=== PATIENT | male | born 1950 | race Caucasian/White ===

== ENCOUNTER → 2016-12-03 | Outpatient (CLI) | payer OTHER ==
[~2016-12-03] MED LIST: ASPIRIN325 PO; CENTRUM SILVER1 EAC2 PO; ENOXAPARIN100 MG/1 M SQ; FISH OIL 1,001000 M2 PO; FLECAINIDE ACET50 M1 PO; NORCO 5-325 TA1 EACH PO; OMEPRAZOLE40 MG PO; SAVAYSA60 MG PO; TENORMIN50 MG PO; TOPROL XL25 MG PO
--- NOTE | ~2016-12-03 | 2DMMODE ---
[facility] [place] [address] 2 D/M-MODE ECHOCARDIOGRAM Name: NIMESH TORRES Room #: REG [facility]#: [id number] Admission: 12/03/16 Attend Phys: Akhil Najera Discharge: Date of : 54 Date of Service: 12/03/16 1100 Report #: [id number] THIS REPORT FOR: //name// Transthoracic Echocardiography Ordering physician: Akhil Najera Referring physician: Sergio Rosario Luis F. Care Team Coordinator Scheduler: Mary Brown Indications/History: Afib BP: 119 / HR: 100bpm Height: 71in Weight: 199.6lb 87 Study data: M-mode, complete 2D, complete spectral Doppler, and color Doppler. Location: Echo laboratory. Routine. Image quality was adequate. 2D measurements Normal Normal LVID ED 44.6mm 36-57 IVS ED 13.5mm 6-11 LVID ES 33.5mm 23-40 LVPW ED 13.2mm 6-11 LA volume 48ml/m2 16-28 AoRoot diam 35.9mm 21-37 index ED LVOT diameter 23mm 18-23 Findings: Left ventricle: The cavity size was normal. Wall thickness was normal. Systolic function was normal. The estimated ejection fraction was in the range of 50% to 55%. Right ventricle: The cavity size was dilated. Systolic function was normal. Right atrium: The atrium was mildly to moderately dilated. Left atrium: The atrium was moderately dilated. Volume index: 48ml/m2 (S). Aortic valve: Mildly calcified leaflets. Doppler: There was no stenosis. Mild regurgitation. Peak velocity: 103cm/s (S). [address] [address] 2 D/M-MODE ECHOCARDIOGRAM Name: NIMESH TORRES Room #: REG [facility]#: [id number] Admission: 12/03/16 Attend Phys: Akhil Najera Discharge: Date of : 54 Date of Service: 12/03/16 1100 Report #: [id number] Mitral valve: Structurally normal valve. Doppler: There was no evidence for stenosis. Mild regurgitation. Peak E-wave velocity: 67.7cm/s. Tricuspid valve: Structurally normal valve. Doppler: There was no evidence for stenosis. Mild regurgitation. Regurgitant peak velocity: 219.3cm/s. Peak RV-RA gradient: 19mm Hg (S). Pulmonic valve: Structurally normal valve. Doppler: There was no evidence for stenosis. Mild regurgitation. Pericardium: There was no pericardial effusion. Aorta: Aortic root: The aortic root was normal in size. Pulmonary artery: Systolic pressure was estimated to be 24mm Hg. Diastolic function: The study was not technically sufficient to allow evaluation of LV diastolic dysfunction due to atrial fibrillation. Systemic veins: Inferior vena cava: The vessel was normal in size; the respirophasic diameter changes were in the normal range (= 50%). Conclusions 1. Left ventricle: The cavity size was normal. Wall thickness was normal. Systolic function was normal. The estimated ejection fraction was in the range of 50% to 55%. 2. Right ventricle: The cavity size was dilated. 3. Right atrium: The atrium was mildly to moderately dilated. 4. Left atrium: The atrium was moderately dilated. 5. Aortic valve: Mildly calcified leaflets. Mild regurgitation. 6. Mitral valve: Mild regurgitation. 7. Tricuspid valve: Structurally normal valve. Mild regurgitation. 8. Pulmonary arteries: Systolic pressure was estimated to be 24mm Hg. <ELECTRONICALLY SIGNED> By: Guzman Kenney MD 12/03/16 1148 1100 1148 Guzman Kenney MD /francisco javier
== END ==
LOC: CV 10:27
DX: I48.91 Unspecified atrial fibrillation (principal)

== ENCOUNTER → 2016-12-06 | Outpatient (CLI) | payer OTHER ==
[~2016-12-06] VITALS: Ht 180.3 cm; Wt 90.7 kg
--- NOTE | ~2016-12-06 | P ---
[facility] [place] [address] PROCEDURE REPORT Name: NIMESH TORRES Room #: REG [facility]#: [id number] Admission: 12/06/16 Attend Phys: Akhil Najera MD Discharge: Date of : 54 Report #: [id number] THIS REPORT FOR: //name// CC: Akhil Rosario DATE OF SERVICE: 12/06/2016 CARDIOVERSION REPORT PREOPERATIVE DIAGNOSIS: Atrial fibrillation. POSTOPERATIVE DIAGNOSIS: Atrial fibrillation. HISTORY: The patient is a 66-year-old with history of atrial fibrillation who has had recurrence and is here for cardioversion. The patient underwent informed consent. We discussed the risks, benefits of the procedure. He was prepped and draped in a sterile fashion. Patches were placed in AP position, the patient was then sedated by the anesthesiology service. His initial cardioversion restored sinus rhythm for a few seconds and then he went back into AFib. A second 200 joule shock was performed with lutheran of sinus rhythm. CONCLUSIONS: 1. Successful DC cardioversion with lutheran of sinus rhythm. <ELECTRONICALLY SIGNED> By: Akhil Najera MD 12/15/16 1045 1202 1748 Akhil Najera MD /nt
[2016-12-06 10:20] VITALS: BP 131/86
[2016-12-06 10:35] LABS: HEMATOCRIT 42.3 % (42.0-52.0); HEMOGLOBIN 14.3 gm/dL (14.0-18.0); MCH 28.9 pg (26.0-34.0); MCHC 33.9 % (28.0-37.0); MCV 85.4 fL (80.0-100.0); RBC 4.95 mil/uL (4.50-6.00); RDW 13.6 % (10.5-14.5); WBC 7.4 thou/uL (4.0-11.0)
[2016-12-06 10:47] LABS: CALCIUM 8.9 mg/dL (8.5-10.1); CREATININE 1.2 mg/dL (0.6-1.3)
[2016-12-06 10:48] LABS: INR 1.4
== END ==
LOC: CATH 07:04
PROVIDERS: Internal Medicine Cardiovascular Disease
DX: I48.91 Unspecified atrial fibrillation (principal)
CPT/HCPCS: 62110

== ENCOUNTER 2017-02-07 06:28 | Observation (INO) | payer OTHER ==
[~2017-02-07] VITALS: Ht 180.3 cm; Wt 93.0 kg
--- NOTE | ~2017-02-07 | H ---
[facility] [place] [place] [address] HISTORY AND PHYSICAL Name: NIMESH TORRES Room #: REG [facility] Perez#: [id number] Admission: 02/07/17 Attend Phys: Akhil Najera MD Discharge: Date of : 54 Report #: [id number] THIS REPORT FOR: //name// CC: Akhil Najera Sergio Langstonbahmancharanjit DATE OF SERVICE: 02/07/2017 REASON FOR ADMISSION: AFib. HISTORY OF PRESENT ILLNESS: The patient is a 66-year-old with history of AFib, who is here for AFib ablation. He has failed antiarrhythmic drugs. PAST MEDICAL HISTORY: 1. Atrial fibrillation. 2. Echo EF 50%. 3. Nuclear stress test 09/2015, no ischemia. 4. STEPHANIE performed last week showed no clot. REVIEW OF SYSTEMS: A 12-point review of systems was performed and was negative other than what I mentioned above. SOCIAL HISTORY: Does not smoke. FAMILY HISTORY: Noncontributory. ALLERGIES: No known drug allergies. PHYSICAL EXAMINATION: VITAL SIGNS: Stable. GENERAL: He is in no acute distress. HEENT: Oropharynx is clear. NECK: Supple, with no thyromegaly. HEART: Irregularly regular. CHEST: Clear to auscultation bilaterally. ABDOMEN: Soft, nontender, nondistended with no hepatosplenomegaly. EXTREMITIES: No clubbing, cyanosis, edema. NEUROLOGIC: Cranial nerves 2-12 are intact. LABORATORY DATA: CBC, chemistry were reviewed and were within normal limits. ASSESSMENT AND PLAN: The patient is a 66-year-old with history of atrial fibrillation who has failed antiarrhythmic drugs and is here for an ablation. [facility] [address] [place] [address] HISTORY AND PHYSICAL Name: MELISSANIMESH CAMMY Room #: REG CL [facility]#: [id number] Admission: 02/07/17 Attend Phys: Akhil Najera MD Discharge: Date of : 54 Report #: [id number] The details of the procedure including the transseptal access and the risks, benefits were again reviewed and he understands. By: 0812 1025 Akhil Najera MD /nt
--- NOTE | ~2017-02-07 | P ---
[facility] [place] [address] PROCEDURE REPORT Name: NIMESH TORRES Room #: 217-P [facility] M.R.#: [id number] Admission: 02/07/17 Attend Phys: Akhil Najera MD Discharge: Date of : 54 Report #: [id number] THIS REPORT FOR: //name// CC: Akhil Rosario PROCEDURE: AFib ablation. PREOPERATIVE DIAGNOSIS: Atrial fibrillation. POSTOPERATIVE DIAGNOSIS: Atrial fibrillation. HISTORY OF PRESENT ILLNESS: The patient is a 67-year-old with a history of atrial fibrillation who has failed antiarrhythmic drug therapy and is here for an AFib ablation. ANESTHESIA: The patient underwent general anesthesia with no anesthesia related complications. DESCRIPTION OF PROCEDURE: The patient underwent informed consent. We discussed the details of the procedure including the risks, which include, but not limited to bleeding, vascular damage, cardiac perforation as well as stroke or CA. He understood these risks and is willing to proceed. The patient was brought to the EP laboratory in a fasting and sedated state and prepped and draped in a sterile fashion. Next, I obtained access to the right femoral vein times 3 placing an 8-Citizen [place], 9-Citizen [place] and 7-Citizen [place] short sheath into the right femoral vein. Under fluoroscopic guidance, I placed a decapolar catheter into the coronary sinus and of note, this fell out multiple times throughout the procedure. I had a hard time maintaining stable site in the CS. The intracardiac ultrasound camera was placed into the right atrium and there was a nice thin septum. The patient was systemically heparinized, then a transseptal was performed using an SL1 sheath and Berne needle and had a nice inferior and anterior stick. I then placed the SL1 into the left atrium and exchanged the SL1 for the cryo sheath and placed the balloon into the left atrium. Next, I isolated the left superior pulmonary vein within 90 seconds of the first freeze and I performed 2 freezes in this vein. I then turned my attention to the left inferior pulmonary vein and this was isolated within 35 seconds of the first freeze. I did a total 2 freezes in this vein. Next, I turned my attention to the right superior pulmonary vein and this vein isolated within 35 seconds of the first freeze as well, I performed one 4-minute freeze in this vein. I then turned my attention to the right inferior pulmonary vein and I performed two 4-minute freezes as I could not see electrograms on the Achieve catheter. After complaining these 2 freezes, this vein was noted to be isolated. During the freezes on the right side, phrenic nerve pacing was performed from the decapolar catheter placed high in the superior vena cava. Next, the patient was cardioverted with 200 joules with druze of sinus rhythm. I then reinterrogated all the veins and it was hard to determine if the left superior [facility] [address] [place] [address] PROCEDURE REPORT Name: MELISSANIMESH CAMMY Room #: 217-P [facility] Gumaro M.RIrina#: [id number] Admission: 02/07/17 Attend Phys: Akhil Najera MD Discharge: Date of : 54 Report #: [id number] vein was isolated because I could not exactly delineate the ostium of this vessel. I performed a third 4-minute freeze with good temperatures at -50 in this vein. I then reinterrogated the vein and it appeared to be isolated. All other veins were rechecked and remained isolated. As such, all four veins were isolated. There was entrance and exit block in the left superior pulmonary vein. I then pulled the cryo sheath to the right atrium, pulled all catheters and verified with ice that there was no pericardial effusion. The patient then received systemic protamine and once the ACT was within acceptable range, all catheters and sheaths were pulled. Hemostasis was obtained and the patient woke up neurologically and hemodynamically intact with no complications. Pre-ablation, the patient was in AFib with a ventricular rate of 440 milliseconds, QRS duration 105 milliseconds, QT interval 370 milliseconds. Post-ablation, the patient was in sinus rhythm with a sinus cycle length of 1065 milliseconds, HI interval 160 milliseconds, QRS duration 105 milliseconds, QT interval 400 milliseconds. CONCLUSIONS: Successful AFib ablation with isolation of all pulmonary veins. By: 1108 2121 Akhil Najera MD /nt
--- NOTE | ~2017-02-07 | D ---
[facility] [place] [address] DISCHARGE SUMMARY Name: NIMESH TORRES Room #: 217-P [facility] Gumaro Nam#: [id number] Admission: 02/07/17 Attend Phys: Akhil Najera MD Discharge: 02/08/17 Date of : 54 Report #: [id number] THIS REPORT FOR: //name// CC: Akhil Kinneyyefri Langstonantoni DATE OF SERVICE: 02/08/2017 DISCHARGE DIAGNOSIS: Atrial fibrillation. PROCEDURES PERFORMED: AFib ablation. HISTORY: The patient is a gentleman with a history of AFib who has failed antiarrhythmic drugs and is here for AFib ablation. He underwent successful isolation of the pulmonary veins with no complications. HOSPITAL COURSE: The patient did well overnight, had no significant issues. On telemetry, he had some brief runs of atrial tachycardia with aberration, but no atrial fibrillation. On the day of discharge, he was doing well without any complaints of chest pain, shortness of breath. His vitals were stable. His physical exam was within normal limits with a normal cardiovascular exam. The heart was regular rate and rhythm. Lungs are clear bilaterally. Right groin was healing nicely with no hematoma. As such, he was deemed stable for discharge home with instructions to continue his flecainide 100 b.i.d., Savaysa, and metoprolol therapy. He will follow up with me in 3 months. By: 0834 1140 Akhil Najera MD /tarsha
[2017-02-07 06:59] VITALS: BP 130/90
[2017-02-07 07:13] LABS: ABSOLUTE NEUTROPHILS 4.2 thou/uL (1.4-8.2); BASOPHILS 0.4 % (0.0-2.0); EOSINOPHILS 3.5 % (0.0-3.0); HEMATOCRIT 44.8 % (42.0-52.0); HEMOGLOBIN 15.2 gm/dL (14.0-18.0); MCH 28.7 pg (26.0-34.0); MCHC 33.8 g/dL (28.0-37.0); MCV 84.8 fL (80.0-100.0); MONOCYTES 9.3 % (1.0-8.0); PLATELET COUNT 389 thou/uL (150-400); POLYS 60.8 % (36.0-66.0); RBC 5.28 mil/uL (4.50-6.00); RDW 13.3 % (10.5-14.5); WBC 6.8 thou/uL (4.0-11.0)
[2017-02-07 07:18] LABS: MANUAL DIFF NO
[2017-02-07 07:22] LABS: CALCIUM 8.8 mg/dL (8.5-10.1); CREATININE 1.2 mg/dL (0.6-1.3); POTASSIUM 3.8 mmol/L (3.5-5.1)
[2017-02-07 07:27] LABS: ALBUMIN 3.5 g/dL (3.4-5.0); APTT 26.6 Seconds (24.5-32.8); PROTIME 10.7 Seconds (9.3-11.4); TOTAL BILIRUBIN 0.5 mg/dL (<0.1-1.0); TOTAL PROTEIN 6.9 g/dL (6.4-8.2)
[2017-02-07 13:54] VITALS: BP 118/71
[2017-02-07 17:55] VITALS: BP 120/87
[2017-02-07 21:34] VITALS: BP 123/69
[2017-02-07 23:53] VITALS: BP 107/70
[2017-02-08 07:40] VITALS: BP 117/80
[2017-02-08 10:44] VITALS: BP 117/80
== END 2017-02-08 11:24 | disposition home or self-care (01) ==
LOC: OR 06:28 → CATH 06:28 → 2N 13:42 → CATH 13:47 → 2N 02-08 11:24
PROVIDERS: Internal Medicine Cardiovascular Disease
DX: I48.91 Unspecified atrial fibrillation (principal)
CPT/HCPCS: 62110; 62900; 65020; 65043; 70005

== ENCOUNTER 2019-07-26 13:59 | Emergency (ER) | payer OTHER ==
[~2019-07-26] VITALS: Ht 180.3 cm; Wt 83.0 kg
[2019-07-26] MEDS ORDERED: FLOMAX0.4 MG PO (15:20)
[2019-07-26 15:27] LABS: URINE BILIRUBIN NEGATIVE (Negative); URINE BLOOD 2+ (Negative); URINE CLARITY CLOUDY; URINE COLOR YELLOW; URINE GLUCOSE-RANDOM* NEGATIVE (Negative); URINE KETONES NEGATIVE (Negative); URINE LEUKOCYTES-REFLEX 2+ (Negative); URINE NITRITE-REFLEX POSITIVE (Negative); URINE PROTEIN (DIPSTICK) TRACE (Negative); URINE SPECIFIC GRAVITY 1.015 (1.005-1.035)
[2019-07-26 15:37] LABS: BACTERIA-REFLEX >30 Many /HPF (None Seen); CASTS None Seen /LPF (None Seen); CRYSTALS None Seen /LPF (None Seen); SQUAMOUS None Seen /LPF (0-3); URINE RBC 3-10 Few /HPF (0-2)
[2019-07-26] MEDS ORDERED: BACTRIM DS TAB1 EACH PO (15:44)
[2019-07-26 16:21] VITALS: BP 112/62
== END 2019-07-26 16:25 ==
LOC: ER 13:59
PROVIDERS: Emergency Medicine
DX: N39.0 Urinary tract infection, site not specified (principal); N31.9 Neuromuscular dysfunction of bladder, unspecified; I48.91 Unspecified atrial fibrillation; E78.5 Hyperlipidemia, unspecified; Z98.890 Other specified postprocedural states; Z90.89 Acquired absence of other organs